=== PATIENT | male | born 1970 | race Native Hawaiian/Other Pacific Islander ===

== ENCOUNTER 2017-11-04 22:41 | Emergency (ER) | payer OTHER ==
[2017-11-04] MEDS ORDERED: ASPIRIN PO ONE (23:20)
[2017-11-04 23:39] LABS: Basophils % (Auto) 0.3 % (0.0-1.8); Eosinophils # (Auto) 0.1 K/mm3 (0.0-0.4); Eosinophils % (Auto) 0.7 % (0.0-4.3); Hematocrit 45.8 % (35.5-45.6); Hemoglobin 15.6 gm/dl (11.8-15.2); Lymphocytes # (Auto) 3.6 K/mm3 (1.2-5.4); Lymphocytes % (Auto) 39.1 % (13.4-35.0); Mean Corpuscular HGB Conc 34 % (32-34); Mean Corpuscular Hemoglobin 29 pg (28-32); Mean Corpuscular Volume 85 fl (84-94); Monocytes # (Auto) 0.6 K/mm3 (0.0-0.8); Monocytes % (Auto) 6.1 % (0.0-7.3); Platelet Count 278 K/mm3 (140-440); Red Blood Count 5.42 M/mm3 (3.65-5.03); Red Cell Distribution Width 12.7 % (13.2-15.2)
[2017-11-05 01:15] LABS: BUN/Creatinine Ratio 18; Blood Urea Nitrogen 14 mg/dL (9-20); Calcium 9.6 mg/dL (8.4-10.2); Hemolysis Index 24
[2017-11-05 05:25] VITALS: BP 138/96
--- NOTE | 2017-11-05 14:31 | Emergency Department Report ---
HPI - General Chief Complaint: Chest Pain Time Seen by Provider: 11/05/17 13:58 - HPI HPI: Harris 26 The patient is a 47-year-old male presenting with chief complaint chest pain. The patient says yesterday he began having right-sided chest pain radiating to his back. Patient's Crohn's pain is burning in nature and states his been intermittent since last night. The patient states he still has pain currently but it is not as severe. The patient gets his pain he score of 5/10. Patient denies pleurisy, cough, shortness of breath, nausea/vomiting or diaphoresis. Patient denies any recent flights or long car trips Location: Right chest Duration: Intermittent since last night Quality: Burning Severity:5/10 Modifying factors: [see above] Context: [see above] Mode of transportation: The patient drove himself to the ED and there are no physical distress present ED Past Medical Hx - Past Medical History Hx GERD: Yes - Family History Family history: no significant - Social History Smoking Status: Never Smoker Substance Use Type: None (denies illicit drug use), Alcohol (occasional) ED Review of Systems ROS: Stated complaint: CHEST PAIN Other details as noted in HPI Constitutional: denies: diaphoresis, fever Eyes: denies: eye pain ENT: denies: throat pain Respiratory: denies: cough, shortness of breath Cardiovascular: chest pain Gastrointestinal: denies: abdominal pain, nausea, vomiting Genitourinary: denies: dysuria Musculoskeletal: back pain Neurological: denies: headache Physical Exam - Physical Exam Vital Signs: Vital Signs 11/04/17 11/04/17 11/05/17 22:40 23:17 05:23 Temperature 98.0 F 98 F 97.7 F Pulse Rate 83 97 H 70 Respiratory 18 18 18 Rate Blood Pressure 141/92 141/92 138/96 O2 Sat by Pulse 97 96 98 Oximetry Physical Exam: GENERAL: The patient is well-developed well-nourished male sitting on stretcher not appearing to be in acute distress. [] HEENT: Normocephalic. Atraumatic. Extraocular motions are intact. Patient has moist mucous membranes. NECK: Supple. Trachea midline CHEST/LUNGS: Clear to auscultation. There is no respiratory distress noted. HEART/CARDIOVASCULAR: Regular. There is no tachycardia. There is no gallop rub or murmur. ABDOMEN: Abdomen is soft, nontender. Absent Novoa sign. Patient has normal bowel sounds. There is no abdominal distention. SKIN: There is no rash. There is no edema. There is no diaphoresis. NEURO: The patient is awake, alert, and oriented. The patient is cooperative. The patient has normal speech MUSCULOSKELETAL: There is no evidence of acute injury. ED Course Vital Signs 11/04/17 11/04/17 11/05/17 22:40 23:17 05:23 Temperature 98.0 F 98 F 97.7 F Pulse Rate 83 97 H 70 Respiratory 18 18 18 Rate Blood Pressure 141/92 141/92 138/96 O2 Sat by Pulse 97 96 98 Oximetry ED Medical Decision Making - Lab Data Result diagrams: 11/04/17 23:23 11/04/17 23:23 - EKG Data -: EKG Interpreted by Me EKG shows normal: sinus rhythm Rate: normal - EKG Data When compared to previous EKG there are: changes noted Interpretation: nonspecific ST-T wave fani (new T-wave inversion in lead V2 when compared to previous EKG last night dated 11/04/2017 @23:05) - Radiology Data Radiology results: report reviewed (CT chest), image reviewed (CT chest) [facility] [address] [place] [address] Cat Scan Report Signed Patient: COMPA BARNETT MR#: [id number] : 1970 Acct:[id number] Age/Sex: 47 / M ADM Date: 11/04/17 Loc: ED Attending Dr: Ordering Physician: ADELAIDE KHAN MD Date of Service: 11/05/17 Procedure(s): CT angio chest Accession Number(s): [id number] cc: ADELAIDE KHAN MD CTA CHEST: HISTORY: chest pain. COMPARISON: none. TECHNIQUE: Helical CT in 1.25mm intervals following IV contrast. Pulmonary embolus protocol. Sagittal and coronal reformatted images. Rotational MIP images. FINDINGS: Contrast bolus is satisfactory. No pulmonary embolus is identified. Thyroid gland: Normal. Tracheobronchial tree: Normal. Esophagus: Normal. Heart: Normal. Pericardium: Normal. Mediastinum: Normal. Lung Alonzo: normal. Pleural Spaces: Normal. Musculoskeletal: Normal. IMPRESSION: No evidence for pulmonary embolus. Unremarkable CT chest with contrast. Transcribed By: TTR Dictated By: ELLE LEVIN JR, MD Electronically Authenticated By: ELLE LEVIN JR, MD Signed Date/Time: 11/05/171534 DD/ 34 TD/TT: 11/05/171534 - Medical Decision Making I discussed with the patient my concern for potential cardiac causes chest pain given lack of other findings during the workup. Patient verbalizes understanding. I offered to admit the patient to the hospital for further evaluation. The patient considered but states he would prefer to go home. Patient verbalized understanding the potential increased morbidity and/or mortality should he leave the hospital AGAINST MEDICAL ADVICE. Patient instructed to return immediately should he change his mind - Differential Diagnosis ACS, PE, aortic dissection, cholelithiasis Critical care attestation.: If time is entered above; I have spent that time in minutes in the direct care of this critically ill patient, excluding procedure time. ED Disposition Clinical Impression: Chest pain Disposition: -07 LEFT AGAINST MED ADVICE Is pt being admited?: No Does the pt Need Aspirin: Yes Condition: Undetermined Instructions: Chest Pain (ED) Additional Instructions: Return to the emergency department immediately should you develop worsening symptoms, fever, inability to tolerate food or liquid or any other concerns. Referrals: SUNG ALEJANDRA MD [Primary Care Provider] - [facility] (Dr. Alejandra is a primary physician. Please follow up with him to be established as a patient) KENISHA TROTTER MD [Staff Physician] - [facility] (Dr Trotter is a police liaison. Please follow-up with him for further evaluation) Forms: AMA Form Time of Disposition: 15:57 (patient leaving AMA)
[2017-11-05 14:46] LABS: Alanine Aminotransferase 34 units/L (7-56); Albumin 4.7 g/dL (3.9-5)
[2017-11-05 15:06] LABS: Bilirubin,Direct < 0.2 mg/dL (0-0.2)
--- NOTE | 2017-11-05 15:45 | Cat Scan Report ---
CTA CHEST: HISTORY: chest pain. COMPARISON: none. TECHNIQUE: Helical CT in 1.25mm intervals following IV contrast. Pulmonary embolus protocol. Sagittal and coronal reformatted images. Rotational MIP images. FINDINGS: Contrast bolus is satisfactory. No pulmonary embolus is identified. Thyroid gland: Normal. Tracheobronchial tree: Normal. Esophagus: Normal. Heart: Normal. Pericardium: Normal. Mediastinum: Normal. Lung Alonzo: normal. Pleural Spaces: Normal. Musculoskeletal: Normal. IMPRESSION: No evidence for pulmonary embolus. Unremarkable CT chest with contrast.
== END 2017-11-05 16:00 | disposition left against medical advice (07) ==
LOC: ED 22:41
DX: R07.9 Chest pain, unspecified (principal); K21.9 Gastro-esophageal reflux disease without esophagitis
CPT/HCPCS: 36415; 71275; 80048; 80074; 84484; 85025; 93005; 93010; 99284; Q9967